=== PATIENT | male | born 1935 | race Caucasian/White ===

== ENCOUNTER 2017-02-27 11:51 | Inpatient (IN) | payer MEDICARE, OTHER ==
[2017-02-27] VITALS (7 sets, daily range): BP systolic 119–147; BP diastolic 72–97; PULSE 76–99; RESP 16–20; TEMP 97.5–98.9; O2SAT 93–97
[~2017-02-27] VITALS: Ht 165.1 cm; Wt 90.0 kg
[2017-02-27] MEDS ORDERED: COUM1TAB PO (12:04)
--- NOTE | 2017-02-27 12:34 | PD ---
HPI Chief Complaint: Foreign Body Time Seen by Provider: 12:34 Travel History International Travel<30 days: No Contact w/Intl Traveler<30days: No Traveled to known affect area: No History of Present Illness HPI 81-year-old male came to the emergency room with history of throat discomfort since she had a let us stuck in his back of the throat 3 days ago. Patient is not the best historian and is very hard of hearing. He says that 2-3 days ago when he was eating he felt like the let Tani stuck in the back of her throat. But since then he has some throat discomfort. His vital signs were stable. His is here with him but she is unable to provide any further information regarding this. No history of shortness of breath at least visibly when I'm talking to the patient. [facility] Past Medical History Narrative Medical List of his past medical, surgical, social and family history is reviewed from the nursing note. Diminished Hearing: Yes ([facility] [employer]) Influenza Vaccination: No Past Surgical History Appendectomy: Yes Social History Alcohol Use: No Tobacco Use: No Allergies-Medications (Allergen,Severity, Reaction): Coded Allergies: No Known Allergies (Unverified , 02/27/17) Comments No known drug allergies. Reported Meds & Prescriptions Reported Meds & Active Scripts Active Reported Warfarin 6 Mg Tab 6.5 Mg PO DAILY Metoprolol Tartrate 50 Mg Tab 50 Mg PO BID Lisinopril 20 Mg Tab 20 Mg PO DAILY Terazosin (Terazosin HCl) 5 Mg Cap 5 Mg PO HS Coumadin (Warfarin) 1 Mg Tab 5 PO DAILY Narrative Medication List of his home medications reviewed from the nursing note. Review of Systems Except as stated in HPI: all other systems reviewed are Neg HENT: Positive: Sore Throat Physical Exam Narrative GENERAL: Awake, alert, elderly, extremely hard of hearing SKIN: Focused skin assessment warm/dry. HEAD: Atraumatic. Normocephalic. EYES: Pupils equal and round. No scleral icterus. No injection or drainage. ENT: No nasal bleeding or discharge. Mucous membranes pink and moist. Angioedema on the soft tissue and oropharynx right worse than left, uvula looks shifted and swollen, erythema but no exudates NECK: Trachea midline. No JVD. CARDIOVASCULAR: Regular rate and rhythm. No murmur appreciated. RESPIRATORY: No accessory muscle use. Clear to auscultation. Breath sounds equal bilaterally. GASTROINTESTINAL: Abdomen soft, non-tender, nondistended. Hepatic and splenic margins not palpable. MUSCULOSKELETAL: No obvious deformities. No clubbing. No cyanosis. No edema. NEUROLOGICAL: Awake and alert. No obvious cranial nerve deficits. Motor grossly within normal limits. Normal speech. PSYCHIATRIC: Appropriate mood and affect; insight and judgment normal. Data Data Last Documented VS Vital Signs Date Time Temp Pulse Resp B/P (MAP) Pulse Ox O2 Delivery O2 Flow Rate FiO2 02/27/17 16:17 98.9 99 18 137/97 (110) 97 Room Air Orders Orders Complete Blood Count With Diff (02/27/17 12:37) Basic Metabolic Panel (Bmp) (02/27/17 12:37) Prothrombin Time / Inr (Pt) (02/27/17 12:37) Ct Soft Tiss Neck W Iv Cont (02/27/17 ) ^ Saline Lock (02/27/17 12:37) Dexamethasone Inj (Decadron Inj) (02/27/17 12:45) Group A Rapid Strep Screen (02/27/17 12:37) Strep Culture (Group A) (02/27/17 13:00) Iohexol 350 Inj (Omnipaque 350 Inj) (02/27/17 14:16) Clindamycin 600 Mg Premix (Cleocin 600 M (02/27/17 16:15) Clindamycin 900 Mg Premix (Cleocin 900 M (02/27/17 16:30) Labs Laboratory Tests Test 02/27/17 13:00 White Blood Count 12.3 TH/MM3 Red Blood Count 4.55 MIL/MM3 Hemoglobin 13.9 GM/DL Hematocrit 42.4 % Mean Corpuscular Volume 93.2 FL Mean Corpuscular Hemoglobin 30.5 PG Mean Corpuscular Hemoglobin Concent 32.8 % Red Cell Distribution Width 13.2 % Platelet Count 187 TH/MM3 Mean Platelet Volume 7.4 FL Neutrophils (%) (Auto) 79.5 % Lymphocytes (%) (Auto) 9.9 % Monocytes (%) (Auto) 9.9 % Eosinophils (%) (Auto) 0.4 % Basophils (%) (Auto) 0.3 % Neutrophils # (Auto) 9.9 TH/MM3 Lymphocytes # (Auto) 1.2 TH/MM3 Monocytes # (Auto) 1.2 TH/MM3 Eosinophils # (Auto) 0.0 TH/MM3 Basophils # (Auto) 0.0 TH/MM3 CBC Comment DIFF FINAL Differential Comment Prothrombin Time 19.8 SEC Prothromb Time International Ratio 1.7 RATIO Blood Urea Nitrogen 19 MG/DL Creatinine 1.40 MG/DL Random Glucose 98 MG/DL Calcium Level 8.6 MG/DL Sodium Level 140 MEQ/L Potassium Level 4.4 MEQ/L Chloride Level 106 MEQ/L Carbon Dioxide Level 27.8 MEQ/L Anion Gap 6 MEQ/L Estimat Glomerular Filtration Rate 49 ML/MIN MDM Medical Decision Making Medical Screen Exam Complete: Yes Emergency Medical Condition: Yes Medical Record Reviewed: Yes Differential Diagnosis Angioedema, strep pharyngitis, peritonsillar abscess Narrative Course 2:27 PM CBC is done and white count shows mild leukocytosis. Chemistry shows renal insufficiency but rest of the blood test is within normal limit. CAT scan is done. Awaiting for the radiology report. Patient is getting IM Decadron 10 mg for the swelling. 4:[address] scan report finally came back after discussed with the radiologist. He thinks it's either inflammation/infection or neoplasm. However in his mind neoplasm is #1 until proven otherwise. I discussed with Dr. Fitzgerald from ENT who wants the patient to be transferred to the main hospital and he'll consult on the patient. I just spoke with the hospitalist who accepted the patient as well. I let the patient and his know about this. Patient is okay with the plan. I've given him a dose of clindamycin as well. Procedures EKG Prior to Arrival: No Physician Communication Physician Communication Dr. Fitzgerald Diagnosis Primary Impression: Tonsillar mass Admitting Information Admitting Physician Requests: it Daria Owens MD Feb 27, 2017 12:34
[2017-02-27] MEDS ORDERED: DEXAMETHASONE SOD PHOS 20 MG/5 ML VIAL IV PUSH ONE (12:45)
[2017-02-27 13:22] LABS: AUTOMATED NEUTROPHIL # 9.9 TH/MM3 (1.8-7.7); BASOPHIL % 0.3 % (0.0-2.0); EOSINOPHIL % 0.4 % (0.0-4.0); HEMATOCRIT 42.4 % (39.0-51.0); HEMO FLAGS DIFF FINAL; LYMPH % 9.9 % (9.0-44.0); LYMPHOCYTE # 1.2 TH/MM3 (1.0-4.8); MEAN CELL VOLUME 93.2 FL (80.0-100.0); MEAN CORPUSCULAR HEMOGLOBIN 30.5 PG (27.0-34.0); MEAN CORPUSCULAR HGB CONC 32.8 % (32.0-36.0); MONO % 9.9 % (0.0-8.0); NEUT % 79.5 % (16.0-70.0); PLATELET COUNT 187 TH/MM3 (150-450); RED BLOOD COUNT 4.55 MIL/MM3 (4.50-5.90); RED CELL DISTRIBUTION WIDTH 13.2 % (11.6-17.2); WHITE BLOOD COUNT 12.3 TH/MM3 (4.0-11.0)
[2017-02-27 13:34] LABS: POTASSIUM 4.4 MEQ/L (3.5-5.1)
[2017-02-27 13:35] LABS: INTERNATIONAL NORMALIZED RATIO 1.7 RATIO; PROTHROMBIN TIME - PATIENT 19.8 SEC (9.8-11.6)
[2017-02-27 13:38] LABS: BICARBONATE 27.8 MEQ/L (21.0-32.0)
[2017-02-27] MEDS ORDERED: IOHEXOL 350 MG/ML 10 ML VIAL (for RAD DIAG) IVCONTRAST ONE (14:16)
[2017-02-27] MEDS ORDERED: CLINDAMYCIN 600 MG PREMIX 50 ML IV ONE (16:15)
[2017-02-27] MEDS ORDERED: METO50TA PO (16:21)
[2017-02-27] MEDS ORDERED: LISI-515 PO (16:21)
[2017-02-27] MEDS ORDERED: TERA5CAP3 PO (16:21)
[2017-02-27] MEDS ORDERED: WARF-60 PO (16:23)
--- NOTE | 2017-02-27 16:26 | RADRPT ---
EXAM DATE/TIME: 02/27/2017 14:09 [place] COMPARISON: No previous studies available for comparison. INDICATIONS : Patient feels like something is stuck in his throat after eating a salad two days ago. No airway comp romise noted. IV CONTRAST: 75 cc Omnipaque 350 (iohexol) IV RADIATION DOSE: 15.66 CTDIvol (mGy) MEDICAL HISTORY : None SURGICAL HISTORY : Appendectomy. ENCOUNTER: Initial ACUITY: 2 days PAIN SCALE: 0/10 LOCATION: neck TECHNIQUE: Volumetric scanning of the neck was performed. Using automated exposure control and adjustment of th e mA and/or kV according to patient size, radiation dose was kept as low as reasonably achievable to obtain optimal diagnostic quality images. DICOM format image data is available electronically for r eview and comparison. FINDINGS: OROPHARYNX: Examination is abnormal. There is asymmetrical soft tissue prominence of the right tongue base a nd tonsil measuring approximately 1.8 x 1.6 x 2.1 cm. No significant associated cervical adenopa thy in this region or fluid collection. LARYNX: The supraglottic, glottic, and infraglottic structures are intact. PARAPHARYNGEAL: The parapharyngeal space is intact. SALIVARY GLANDS: The parotid and submandibular glands are intact. LYMPH NODES: No enlarged or necrotic-appearing nodes. THYROID: Homogeneous enhancement without evidence of nodule. BONES: Unremarkable. CONCLUSION: 1. Abnormal examination. Ill-defined asymmetrical soft tissue prominence of the right tongue base and tonsil measuring approximately 1.8 x 1.6 x 2.1 cm. No significant associated fluid collection or inf lammatory changes. No significant cervical adenopathy. Although differential considerations include b oth inflammatory/infectious and malignant etiologies, this lesion is malignant until proven otherwise . Scar Hernandez MD on February 27, 2017 at 16:15 Board Certified Radiologist. This report was verified electronically.
[2017-02-27] MEDS ORDERED: CLINDAMYCIN 900 MG PREMIX 50 ML IV ONE (16:30)
[2017-02-27] MEDS: SODIUM CHLOR 0.9% 1000 ML INJ 1,000 ML IV SCH (16:51)
[2017-02-27] MEDS ORDERED: NALOXONE HCL 0.4 MG/ML AMP IV PUSH PRN (17:00)
[2017-02-27] MEDS ORDERED: SODIUM CHLORIDE 0.9% FLUSH 10 ML FLUSH IV FLUSH PRN (17:00)
[2017-02-27] MEDS ORDERED: DEXAMETHASONE SOD PHOS 4 MG/ML VIAL IV PUSH SCH (17:00)
[2017-02-27] MEDS: METOPROLOL TARTRATE 50 MG TAB PO SCH (22:06)
[2017-02-27] MEDS: TERAZOSIN HCL 5 MG CAP PO SCH (22:06)
[2017-02-27] MEDS: DEXAMETHASONE SOD PHOS 4 MG/ML VIAL IV PUSH SCH (22:06)
[2017-02-28] VITALS: BP 95/52; PULSE 75; RESP 20; TEMP 95.2; O2SAT 93
[2017-02-28] MEDS: SODIUM CHLOR 0.9% 1000 ML INJ 1,000 ML IV SCH ×3 (02:02→21:18)
[2017-02-28] MEDS: DEXAMETHASONE SOD PHOS 4 MG/ML VIAL IV PUSH SCH ×3 (06:01→21:22)
[2017-02-28 06:49] LABS: AUTOMATED NEUTROPHIL # 9.4 TH/MM3 (1.8-7.7); HEMATOCRIT 41.3 % (39.0-51.0); HEMO FLAGS DIFF FINAL; LYMPH % 7.1 % (9.0-44.0); LYMPHOCYTE # 0.7 TH/MM3 (1.0-4.8); MEAN CELL VOLUME 95.3 FL (80.0-100.0); MEAN CORPUSCULAR HEMOGLOBIN 32.2 PG (27.0-34.0); MEAN CORPUSCULAR HGB CONC 33.8 % (32.0-36.0); MONO % 2.4 % (0.0-8.0); NEUT % 90.5 % (16.0-70.0); PLATELET COUNT 171 TH/MM3 (150-450); RED BLOOD COUNT 4.33 MIL/MM3 (4.50-5.90); RED CELL DISTRIBUTION WIDTH 14.2 % (11.6-17.2); WHITE BLOOD COUNT 10.4 TH/MM3 (4.0-11.0)
[2017-02-28 06:55] LABS: INTERNATIONAL NORMALIZED RATIO 1.8 RATIO; PROTHROMBIN TIME - PATIENT 18.2 SEC (9.8-11.6)
[2017-02-28 07:15] LABS: BICARBONATE 25.1 MEQ/L (21.0-32.0); POTASSIUM 4.2 MEQ/L (3.5-5.1)
[2017-02-28 08:00] VITALS: BP 135/80; PULSE 89; RESP 18; TEMP 96.5; O2SAT 97
[2017-02-28] MEDS: CLINDAMYCIN 600 MG PREMIX 50 ML IV SCH ×4 (09:05→23:38)
[2017-02-28] MEDS: LISINOPRIL 20 MG TAB PO SCH (09:06)
[2017-02-28] MEDS: METOPROLOL TARTRATE 50 MG TAB PO SCH ×2 (09:06→21:00)
--- NOTE | 2017-02-28 11:10 | HHI.HP ---
[facility] Service [facility] Primary Care Physician Belinda English MD Admission Diagnosis tonsillar mass Diagnoses: Chief Complaint: Coughing up phlegm Travel History International Travel<30 Days: No Contact w/Intl Traveler <30 Da: No Traveled to Known Affected Are: No History of Present Illness This is a 81-year-old male past mental history of hypertension, hearing loss, and cyst and throat who presented with cough and phlegm. Patient stated that he ate a piece of lettuce yesterday afternoon and felt like it was stuck in his throat. He stated that he started to bruise deuce phlegm was trying to cough it up but couldn't. Patient stated that he just felt very comfortable so went to the emergency department. In the emergency department he had a CT scan which showed ill-defined asymmetrical soft tissue prominence of the right tongue base and tonsils. Patient was given IV Decadron and clindamycin with improvement symptoms. When patient was examined by me he stated that he never has shortness of breathing or sore throat. Patient stated that it was a phlegm that was bothering him. Patient feels a lot better at the moment. He denies any service of breathing, sore throat, patient of choking. Patient remains afebrile. He denies any upper respiratory symptoms prior to this admission. All other review systems reviewed and negative. Past Family Social History Past Medical History Hypertension Hearing loss throat cyst History DVT Past Surgical History Cholecystectomy Pins in the right hip Reported Medications Warfarin 6 Mg Tab 6.5 Mg PO DAILY Metoprolol Tartrate 50 Mg Tab 50 Mg PO BID Lisinopril 20 Mg Tab 20 Mg PO DAILY Terazosin (Terazosin HCl) 5 Mg Cap 5 Mg PO HS Coumadin (Warfarin) 1 Mg Tab 5 PO DAILY Allergies: Coded Allergies: No Known Allergies (Unverified , 02/27/17) Active Ordered Medications Current Medications Dexamethasone Sodium Phosphate (Decadron Inj) 10 mg ONCE ONCE IV PUSH Last administered on 02/27/17t 13:16; Start 02/27/17 at 12:45; Stop 02/27/17 at 12:46 ; Status DC Iohexol (Omnipaque 350 Inj) 75 ml STK-MED ONCE IVCONTRAST Last administered on 02/27/17 14:16; Start 02/27/17 at 14:16; Stop 02/27/17 at 14:17; Status DC Clindamycin Phosphate/Dextrose 50 ml @ 100 mls/hr ONCE ONCE IV ; Start at 16:15; Stop 02/27/17 at 16:21; Status DC Clindamycin Phosphate/Dextrose 50 ml @ 100 mls/hr ONCE ONCE IV Last administered on 02/27/17 16:33; Start 02/27/17 at 16:30; Stop 02/27/17 at 16:59 ; Status DC Sodium Chloride 1,000 ml @ 100 mls/hr Q10H IV Last administered on 02/28/17 09:08; Start 02/27/17 at 16:51 Sodium Chloride (NS Flush) 2 ml UNSCH PRN IV FLUSH FLUSH AFTER USING IV ACCESS ; Start 02/27/17 at 17:00 Naloxone HCl (Narcan Inj) 0.4 mg UNSCH PRN IV PUSH SEE LABEL COMMENTS; Start 02/27/17 at 17:00 Clindamycin/ Sodium Chloride 50 ml @ 100 mls/hr Q8H IV Last administered on 09:05; Start 02/28/17 at 00:00 Dexamethasone Sodium Phosphate (Decadron Inj) 8 mg Q8H IV PUSH ; Start 02/27/17 at 17:00; Stop 02/27/17 at 17:10; Status DC Lisinopril (Prinivil) 20 mg DAILY PO Last administered on 02/28/17 09:06; Start 02/28/17 at 09:00 Metoprolol Tartrate (Lopressor) 50 mg BID PO Last administered on 02/28/17 09: 06; Start 02/27/17 at 21:00 Terazosin HCl (Hytrin) 5 mg HS PO Last administered on 02/27/17 22:06; Start 02/27/17 at 21:00 Dexamethasone Sodium Phosphate (Decadron Inj) 8 mg Q8H IV PUSH Last administered on 02/28/17 12:35; Start 02/27/17 at 21:00 Influenza Virus Vaccine (Flu (Quadrivalent) Vaccine Inj) 0.5 ml ONCE ONCE IM ; Start 03/01/17 at 10:00; Stop 03/01/17 at 10:01 Family History Mother had emphysema. Social History Denied tobacco or illicit drug use. Occasionally drinks alcohol. Physical Exam Vital Signs Vital Signs Date Time Temp Pulse Resp B/P (MAP) Pulse Ox O2 Delivery O2 Flow Rate FiO2 02/28/17 00:00 95.2 75 20 95/52 (66) 93 02/27/17 20:55 97.5 89 20 129/81 (97) 94 02/27/17 19:50 98.3 102 20 147/72 (97) 99 02/27/17 19:50 20 02/27/17 18:13 97 02/27/17 16:17 98.9 99 18 137/97 (110) 97 Room Air 02/27/17 14:29 83 18 119/84 (96) 97 02/27/17 13:17 76 18 123/80 (94) 97 02/27/17 11:56 98.1 88 16 145/85 (105) 93 Physical Exam GENERAL: This is a well-nourished, well-developed patient, in no apparent distress. SKIN: No rashes, ecchymoses or lesions. Cool and dry. HEAD: Atraumatic. Normocephalic. No temporal or scalp tenderness. EYES: Pupils equal round and reactive. Extraocular motions intact. No scleral icterus. No injection or drainage. ENT: Nose without bleeding, purulent drainage or septal hematoma. No erythema of the throat mild swelling of the tonsils. No exudate noted. Uvula midline. Airway patent. NECK: Trachea midline. No JVD or lymphadenopathy. Supple, nontender, no meningeal signs. CARDIOVASCULAR: Regular rate and rhythm without murmurs, gallops, or rubs. RESPIRATORY: Clear to auscultation. Breath sounds equal bilaterally. No wheezes , rales, or rhonchi. GASTROINTESTINAL: Abdomen soft, non-tender, nondistended. No hepato-splenomegaly , or palpable masses. No guarding. MUSCULOSKELETAL: Extremities without clubbing, cyanosis, or edema. No joint tenderness, effusion, or edema noted. No calf tenderness. Negative Homans sign bilaterally. NEUROLOGICAL: Awake and alert. Cranial nerves II through XII intact. Motor and sensory grossly within normal limits. Five out of 5 muscle strength in all muscle groups. Normal speech. Laboratory Laboratory Tests Test 02/27/17 13:00 02/28/17 05:55 White Blood Count 12.3 10.4 Red Blood Count 4.55 4.33 Hemoglobin 13.9 14.0 Hematocrit 42.4 41.3 Mean Corpuscular Volume 93.2 95.3 Mean Corpuscular Hemoglobin 30.5 32.2 Mean Corpuscular Hemoglobin Concent 32.8 33.8 Red Cell Distribution Width 13.2 14.2 Platelet Count 187 171 Mean Platelet Volume 7.4 7.7 Neutrophils (%) (Auto) 79.5 90.5 Lymphocytes (%) (Auto) 9.9 7.1 Monocytes (%) (Auto) 9.9 2.4 Eosinophils (%) (Auto) 0.4 0.0 Basophils (%) (Auto) 0.3 0.0 Neutrophils # (Auto) 9.9 9.4 Lymphocytes # (Auto) 1.2 0.7 Monocytes # (Auto) 1.2 0.2 Eosinophils # (Auto) 0.0 0.0 Basophils # (Auto) 0.0 0.0 CBC Comment DIFF FINAL DIFF FINAL Differential Comment Prothrombin Time 19.8 18.2 Prothromb Time International Ratio 1.7 1.8 Blood Urea Nitrogen 19 21 Creatinine 1.40 1.29 Random Glucose 98 127 Calcium Level 8.6 8.4 Sodium Level 140 140 Potassium Level 4.4 4.2 Chloride Level 106 108 Carbon Dioxide Level 27.8 25.1 Anion Gap 6 7 Estimat Glomerular Filtration Rate 49 53 Date/Time Source Procedure Growth Status 02/27/17 13:00 Throat Group A Streptococcus Screen Pending Received Result Diagram: 02/28/17 0555 02/28/17 0555 Imaging Last Impressions Neck CT 02/27/17 0000 Signed Impressions: Service Date/Time: Monday, February 27, 2017 14:09 - CONCLUSION: 1. Abnormal examination. Ill-defined asymmetrical soft tissue prominence of the right tongue base and tonsil measuring approximately 1.8 x 1.6 x 2.1 cm. No significant associated fluid collection or inflammatory changes. No significant cervical adenopathy. Although differential considerations include both inflammatory/infectious and malignant etiologies, this lesion is malignant until proven otherwise. MD Hue Contreras VTE Risk Assessment Hue VTE Risk Assessment: Mod/High Risk (score >= 2) Caprini Risk Assessment Model Point Value = 1 Point Value = 2 Point Value = 3 Point Value = 5 Age 41-60 Minor surgery BMI > 25 kg/m2 Swollen legs Varicose veins or History of unexplained or recurrent spontaneous Oral contraceptives or hormone replacement Sepsis (< 1 month) Serious lung disease, including pneumonia (< 1 month) Abnormal pulmonary function Acute myocardial infarction Congestive heart failure (< 1 month) History of inflammatory bowel disease Medical patient at bed rest Age 61-74 Arthroscopic surgery Major open surgery (> 45 min) Laparoscopic surgery (> 45 min) Malignancy Confined to bed (> 72 hours) Immobilizing plaster cast Central venous access Age >= 75 History of VTE Family history of VTE Factor V Leiden Prothrombin [id number] Lupus anticoagulant Anticardiolipin antibodies Elevated serum homocysteine Heparin-induced thrombocytopenia Other congenital or acquired thrombophilia Stroke (< 1 month) Elective arthroplasty Hip, pelvis, or leg fracture Acute spinal cord injury (< 1 month) Prophylaxis Regimen Total Risk Factor Score Risk Level Prophylaxis Regimen 0-1 Low Early ambulation 2 Moderate Order ONE of the following: *Sequential Compression Device (SCD) *Heparin 5000 units SQ BID 3-4 Higher Order ONE of the following medications: *Heparin 5000 units SQ TID *Enoxaparin/Lovenox 40 mg SQ daily (WT < 150 kg, CrCl > 30 mL/min) *Enoxaparin/Lovenox 30 mg SQ daily (WT < 150 kg, CrCl > 10-29 mL/min) *Enoxaparin/Lovenox 30 mg SQ BID (WT < 150 kg, CrCl > 30 mL/min) AND/OR *Sequential Compression Device (SCD) 5 or more Highest Order ONE of the following medications: *Heparin 5000 units SQ TID (Preferred with Epidurals) *Enoxaparin/Lovenox 40 mg SQ daily (WT < 150 kg, CrCl > 30 mL/min) *Enoxaparin/Lovenox 30 mg SQ daily (WT < 150 kg, CrCl > 10-29 mL/min) *Enoxaparin/Lovenox 30 mg SQ BID (WT < 150 kg, CrCl > 30 mL/min) AND *Sequential Compression Device (SCD) Assessment and Plan Assessment and Plan This is a 81-year-old male with past medical history of hypertension and cirrhosis of the throat who presented with cough/phlegm Questionable right tongue base and tonsil mass measuring 1.8 x 1.6 x 2.1 -Patient currently on Decadron and clindamycin. Continue current regimen. -ENT consulted pending recommendations. Hypertension -continue with home regimen. History of DVT -On Coumadin. INR is 2.1 which is therapeutic. -Will hold Coumadin at the moment anticipating possible procedure. DVT prophylaxis -continue with SCDs. Discussed Condition With patient Physician Certification 2 Midnight Certification Type: Admission for Inpatient Services Order for Inpatient Services The services are ordered in accordance with Medicare regulations or non- Medicare payer requirements, as applicable. In the case of services not specified as inpatient-only, they are appropriately provided as inpatient services in accordance with the 2-midnight benchmark. Estimated LOS (days): 3 days is the estimated time the patient will need to remain in the hospital, assuming treatment plan goals are met and no additional complications. Post-Hospital Plan: Home Lisa Junior MD Feb 28, 2017 11:10
[2017-02-28 12:00] VITALS: BP 134/90; PULSE 71; RESP 16; TEMP 97.7; O2SAT 97
[2017-02-28 16:00] VITALS: BP 150/82; PULSE 84; RESP 18; TEMP 97.2; O2SAT 95
[2017-02-28 20:00] VITALS: BP 130/88; PULSE 87; RESP 18; TEMP 96; O2SAT 97
[2017-02-28] MEDS: TERAZOSIN HCL 5 MG CAP PO SCH (21:00)
[2017-03-01] VITALS: BP 131/79; PULSE 80; RESP 17; TEMP 95.9; O2SAT 95
[2017-03-01] MEDS: DEXAMETHASONE SOD PHOS 4 MG/ML VIAL IV PUSH SCH ×2 (05:05→14:12)
[2017-03-01 08:00] VITALS: BP 144/70; PULSE 79; RESP 18; TEMP 97.5; O2SAT 95
[2017-03-01] MEDS: SODIUM CHLOR 0.9% 1000 ML INJ 1,000 ML IV SCH (08:18)
[2017-03-01] MEDS: CLINDAMYCIN 600 MG PREMIX 50 ML IV SCH (08:20)
[2017-03-01] MEDS: METOPROLOL TARTRATE 50 MG TAB PO SCH (08:21)
[2017-03-01] MEDS: LISINOPRIL 20 MG TAB PO SCH (08:21)
--- NOTE | 2017-03-01 09:06 | HHI.PR ---
Subjective Remarks Follow up visit for tonsillar, tongue mass. Patient seen and examined today. Voice is hoarse. But states he is doing okay. States that ENT has seen him yesterday and did a small school onto his throat and states that he needs to go home and follow-up with ENT office when he gets discharged. Denies difficulty swallowing of pills, soft food. Denies pain and discomfort. Denies SOB/ dyspnea. Denies chest pain, palpitations, headaches, dizziness. Denies fevers, chills, n/v/d. Denies hematuria, dysuria. Objective Vitals Vital Signs Date Time Temp Pulse Resp B/P (MAP) Pulse Ox O2 Delivery O2 Flow Rate FiO2 03/01/17 08:00 97.5 79 18 144/70 (94) 95 03/01/17 00:00 95.9 80 17 131/79 (96) 95 02/28/17 20:00 96.0 87 18 130/88 (102) 97 02/28/17 16:00 97.2 84 18 150/82 (104) 95 02/28/17 12:00 97.7 71 16 134/90 (105) 97 I/O 02/28/17 02/28/17 02/28/17 03/01/17 03/01/17 03/01/17 07:00 15:00 23:00 07:00 15:00 23:00 Intake Total 50 ml 50 ml 1150 ml 50 ml Output Total 150 ml 500 ml Balance -100 ml 50 ml 650 ml 50 ml Intake IV Total 50 ml 50 ml 1150 ml 50 ml Output Urine Total 150 ml 500 ml # Voids 2 # Bowel Movements 0 Result Diagram: 02/28/17 0555 02/28/17 0555 Imaging Last Impressions Neck CT 02/27/17 0000 Signed Impressions: Service Date/Time: Monday, February 27, 2017 14:09 - CONCLUSION: 1. Abnormal examination. Ill-defined asymmetrical soft tissue prominence of the right tongue base and tonsil measuring approximately 1.8 x 1.6 x 2.1 cm. No significant associated fluid collection or inflammatory changes. No significant cervical adenopathy. Although differential considerations include both inflammatory/infectious and malignant etiologies, this lesion is malignant until proven otherwise. Scar Hernandez MD Objective Remarks GENERAL: This is a well-nourished, well-developed patient, in no apparent distress. SKIN: Warm and dry HEENT: Normocephalic. Pupils equal round and reactive. Nose without bleeding. Airway patent. NECK: Trachea midline. No palpable mass. CARDIOVASCULAR: Regular rate and rhythm without murmurs, gallops, or rubs. RESPIRATORY: Clear to auscultation. Breath sounds equal bilaterally. No wheezes , rales, or rhonchi. GASTROINTESTINAL: Abdomen soft, non-tender, nondistended. Bowel Sounds normoactive x4. MUSCULOSKELETAL: Extremities without clubbing, cyanosis, or edema. NEUROLOGICAL: Awake and alert. Oriented to time, place, person. No focal neuro deficit. Moves all extremities. Normal speech. A/P Problem List: (1) Tonsillar mass ICD Code: R22.0 - Localized swelling, mass and lump, head Status: Acute Assessment and Plan This is a 81-year-old male with past medical history of hypertension and cirrhosis of the throat who presented with cough/phlegm Questionable right tongue base and tonsil mass measuring 1.8 x 1.6 x 2.1 - Patient currently on Decadron and clindamycin. Continue current regimen. - ENT consulted recommends to follow-up in ENT office for definitive diagnosis. - Speech therapy to evaluate swallowing. We'll start when necessary a diet for now and DC IV fluids. - Plan to discharge home patient today as he denies any odynophagia, dysphagia. We'll probably discharge home without antibiotics or short-term steroid attending Dr. Chin's recommendation. Hypertension - continue with home regimen. History of DVT - On Coumadin. INR is 2.1 which is therapeutic. - Resume Coumadin when discharge DVT prophylaxis - continue with SCDs. Discharge Planning Plan to DC home today when cleared by ENT. Alex Berry Mar 01, 2017 09:06
--- NOTE | 2017-03-01 09:41 | MB ---
cc: HENRRY SOOD MD DATE OF CONSULTATION: 03/01/2017 CHIEF COMPLAINT Feeling like something is in his throat. HISTORY OF PRESENT ILLNESS An 81-year-old male reporting that over the last couple of weeks he feels like there is something in his throat. He originally associated it with eating, however, it has continually worsened over the last few days. He was seen and evaluated in the emergency room with a CT scan showing some asymmetry to the right tongue base and tonsil. The patient was admitted for further work-up of this. He reports to me that he has no odynophagia, no dysphagia, Denies any otalgia. Denies any hemoptysis. PAST MEDICAL HISTORY 1. Hypertension. 2. Hearing loss. 3. A previously known throat cyst of some sort. 4. History of DVT. PAST SURGICAL HISTORY 1. Hip surgery. 2. Cholecystectomy. MEDICATIONS As an outpatient he is on: 1. Warfarin. 2. Metoprolol. 3. Lisinopril. 4. Terazosin. 5. Coumadin. ALLERGIES No known drug allergies. SOCIAL HISTORY Denies tobacco or drugs, however, he does drink alcohol. PHYSICAL EXAMINATION GENERAL: The patient is alert and oriented x3 in no acute distress. VITAL SIGNS: He is afebrile. Vital signs are stable. ENT: A flexible laryngoscopy at bedside today reveals a right-sided tonsillar and vallecula ill-defined mass. It is not erythematous, is not bleeding, is somewhat exophytic and a little firm to palpation. There is no signs of abscess. His airway is widely patent. His vocal cords are mobile bilaterally. His neck exam reveals no palpable adenopathy. Tongue to palpation does reveal firmness on the right base of tongue. ASSESSMENT AND PLAN Patient with a lesion of the tongue base concerning for malignancy. At this time would recommend the patient follow up as an outpatient with ENT so he can have a more thorough examination in the office with planning for definitive diagnosis. Thank you for this consultation. Henrry Sood AT/BT /9:24 AM /9:30 AM
[2017-03-01] MEDS ORDERED: INFLUENZA VIRUS VACCINE (QUADRIVALENT) 0.5 ML SYR IM ONE (10:00)
--- NOTE | 2017-03-01 11:00 | HHI.DCPOC ---
Discharge Care Plan Diagnosis: (1) Tonsillar mass Your Health Problems Are: Inflammation Swelling Goals to Promote Your Health * To prevent worsening of your condition and complications * To maintain your health at the optimal level Directions to Meet Your Goals Take your medications as prescribed Follow your dietary instruction Follow activity as directed Keep your appointments as scheduled Take your immunizations and boosters as scheduled If your symptoms worsen call your PCP, if no PCP go to Urgent Care Center or Emergency Room Smoking is Dangerous to Your Health. Avoid second hand smoke Call the 24-hour hour crisis hotline for domestic abuse at [facility] Berry Mar 01, 2017 11:00
--- NOTE | 2017-03-01 11:06 | HHI.DS ---
Discharge Summary Admission Date Feb 27, 2017 at 16:56 Discharge Date: Mar 01, 2017 Admitting Diagnosis tonsillar mass (1) Tonsillar mass ICD Code: R22.0 - Localized swelling, mass and lump, head Status: Acute Procedures ENT bedside procedure Brief History - From Admission This is a 81-year-old male past mental history of hypertension, hearing loss, and cyst and throat who presented with cough and phlegm. Patient stated that he ate a piece of lettuce yesterday afternoon and felt like it was stuck in his throat. He stated that he started to bruise deuce phlegm was trying to cough it up but couldn't. Patient stated that he just felt very comfortable so went to the emergency department. In the emergency department he had a CT scan which showed ill-defined asymmetrical soft tissue prominence of the right tongue base and tonsils. Patient was given IV Decadron and clindamycin with improvement symptoms. When patient was examined by me he stated that he never has shortness of breathing or sore throat. Patient stated that it was a phlegm that was bothering him. Patient feels a lot better at the moment. He denies any service of breathing, sore throat, patient of choking. Patient remains afebrile. He denies any upper respiratory symptoms prior to this admission. All other review systems reviewed and negative. CBC/BMP: 02/28/17 0555 02/28/17 0555 Significant Findings Laboratory Tests Test 02/27/17 13:00 02/28/17 05:55 White Blood Count 12.3 TH/MM3 (4.0-11.0) Neutrophils (%) (Auto) 79.5 % (16.0-70.0) 90.5 % (16.0-70.0) Monocytes (%) (Auto) 9.9 % (0.0-8.0) Neutrophils # (Auto) 9.9 TH/MM3 (1.8-7.7) 9.4 TH/MM3 (1.8-7.7) Monocytes # (Auto) 1.2 TH/MM3 (0-0.9) Prothrombin Time 19.8 SEC (9.8-11.6) 18.2 SEC (9.8-11.6) Blood Urea Nitrogen 19 MG/DL (7-18) 21 MG/DL (7-18) Creatinine 1.40 MG/DL (0.60-1.30) Estimat Glomerular Filtration Rate 49 ML/MIN (>89) 53 ML/MIN (>89) Red Blood Count 4.33 MIL/MM3 (4.50-5.90) Lymphocytes (%) (Auto) 7.1 % (9.0-44.0) Lymphocytes # (Auto) 0.7 TH/MM3 (1.0-4.8) Random Glucose 127 MG/DL (74-106) Calcium Level 8.4 MG/DL (8.5-10.1) Chloride Level 108 MEQ/L (98-107) Imaging Last Impressions Neck CT 02/27/17 0000 Signed Impressions: Service Date/Time: Monday, February 27, 2017 14:09 - CONCLUSION: 1. Abnormal examination. Ill-defined asymmetrical soft tissue prominence of the right tongue base and tonsil measuring approximately 1.8 x 1.6 x 2.1 cm. No significant associated fluid collection or inflammatory changes. No significant cervical adenopathy. Although differential considerations include both inflammatory/infectious and malignant etiologies, this lesion is malignant until proven otherwise. Scar Hernandez MD PE at Discharge GENERAL: This is a well-nourished, well-developed patient, in no apparent distress. SKIN: Warm and dry HEENT: Normocephalic. Pupils equal round and reactive. Nose without bleeding. Airway patent. NECK: Trachea midline. No palpable mass. CARDIOVASCULAR: Regular rate and rhythm without murmurs, gallops, or rubs. RESPIRATORY: Clear to auscultation. Breath sounds equal bilaterally. No wheezes , rales, or rhonchi. GASTROINTESTINAL: Abdomen soft, non-tender, nondistended. Bowel Sounds normoactive x4. MUSCULOSKELETAL: Extremities without clubbing, cyanosis, or edema. NEUROLOGICAL: Awake and alert. Oriented to time, place, person. No focal neuro deficit. Moves all extremities. Normal speech. Pt update on day of discharge Follow up visit for tonsillar, tongue mass. Patient seen and examined today. Voice is hoarse. But states he is doing okay. States that ENT has seen him yesterday and did a small school onto his throat and states that he needs to go home and follow-up with ENT office when he gets discharged. Denies difficulty swallowing of pills, soft food. Denies pain and discomfort. Denies SOB/ dyspnea. Denies chest pain, palpitations, headaches, dizziness. Denies fevers, chills, n/v/d. Denies hematuria, dysuria. Hospital Course Patient is an 81-year-old male with past medical history of hypertension and DVT who came into the hospital with complaints of something is stuck on his throat feeling. Patient has a questionable right base and tonsillar mass measuring 1.8 x 1.[address] scan. He was started with Decadron and clindamycin. ENT was consulted and has seen the patient noted that the lesion on the tongue base concerning for malignancy would recommend the patient follow- up in his office for further examination and plans of definitive diagnosis. Patient denies without aphasia, dysphasia. Speech will evaluate patient to recommend diet. Plans to DC home with follow-up in ENT offices been discussed with patient and is agreeable with plan. Will discharge patient off of clindamycin and will have tapered dose of Medrol Dosepak. Patient has met maximal benefits of hospitalization. Clinically stable for discharge. Discuss extensively dietary modification and follow up outpatient with ENT and Speech Therapy. Discuss all plans with Patient's son Ace. Pt Condition on Discharge: Good Discharge Disposition: Discharge Home Discharge Time: <= 30 minutes Discharge Instructions DIET: Follow Instructions for: Heart Healthy Diet Additional Diet Instructions: Mechanical Soft, Soft diet Follow up with Speech Therapy in outpatient Activities you can perform: Regular-No Restrictions Follow up Referrals: Ear Nose Throat - 1 Week with Henrry Chin MD PCP Follow-up - 1 Week New Medications: Methylprednisolone Dosepak (Medrol Dosepak) 4 Mg Dspk 4 MG PO DIRECTED, #1 DSPK 0 Refills Per Pharmacist direction Continued Medications: Lisinopril (Lisinopril) 20 Mg Tab 20 MG PO DAILY, #30 TAB 0 Refills Metoprolol Tartrate (Metoprolol Tartrate) 50 Mg Tab 50 MG PO BID, #60 TAB 0 Refills Terazosin (Terazosin) 5 Mg Cap 5 MG PO HS, #30 CAP 0 Refills Warfarin (Coumadin) 1 Mg Tab 5 PO DAILY for Prevent Blood Clot, #30 TAB 0 Refills Warfarin (Warfarin) 6 Mg Tab 6.5 MG PO DAILY for Blood Clot Prevention, #30 TAB 0 Refills Alex Berry Mar 01, 2017 11:06
[2017-03-01] MEDS ORDERED: MEDR4PAK PO (11:08)
== END 2017-03-01 15:39 | disposition home or self-care (01) | DRG 159 ==
LOC: PHED 11:51 → PHEDA 16:56 → N07B 20:19
PROVIDERS: ADMIT Family Medicine; ATTEND Family Medicine
PROC: 0CJS8ZZ Inspection of Larynx, Via Natural or Artificial Opening Endoscopic (ICD-10-PCS; principal; 2017-03-01)
DX: K14.9 Disease of tongue, unspecified (principal); I10 Essential (primary) hypertension; J35.9 Chronic disease of tonsils and adenoids, unspecified; H91.93 Unspecified hearing loss, bilateral; R49.0 Dysphonia; Z86.718 Personal history of other venous thrombosis and embolism; Z79.01 Long term (current) use of anticoagulants; Z23 Encounter for immunization
CPT/HCPCS: 70491; 80048; 85025; 85610; 87081; 87880; 90686; 96365; 96375; J1100; J7030; Q2038; Q9967